=== PATIENT | male | born 2005 | race Caucasian/White ===

== ENCOUNTER → 2023-06-21 | Outpatient (CLI) | payer OTHER | LOC: M CARPUL 08:18 | PROVIDERS: ATTEND Physician Assistant | DX: R06.02 Shortness of breath (principal) ==

== ENCOUNTER 2023-12-10 20:31 | Emergency (ER) | payer OTHER ==
[~2023-12-10] VITALS: Ht 172.7 cm; Wt 88.1 kg
[2023-12-10 20:33] VITALS: BP 142/79; TEMP 98.4; O2SAT 98
== END 2023-12-11 00:02 | disposition left against medical advice (07) ==
LOC: M ED 20:31
DX: Z53.21 Procedure and treatment not carried out due to patient leaving prior to being seen by health care provider (principal)

== ENCOUNTER → 2024-04-06 | Outpatient (REF) | LOC: M PLAIMG 09:37 | PROVIDERS: ATTEND Internal Medicine | DX: R06.02 Shortness of breath (principal) ==